=== PATIENT | male | born 1975 | race African-American/Black ===

== ENCOUNTER → 2017-07-15 | Outpatient (CLI) | payer BC ==
[~2017-07-15] MED LIST: AMLODIPINE BESY10 MG PO; ASPIRIN81 M1 PO; BENTYL20 MG PO; PRILOSEC40 MG PO; ULTRAM50 MG PO
== END | disposition home or self-care (01) ==
LOC: CDC 08:48
DX: Z01.810 Encounter for preprocedural cardiovascular examination (principal); M25.511 Pain in right shoulder; M75.41 Impingement syndrome of right shoulder; M75.21 Bicipital tendinitis, right shoulder
CPT/HCPCS: 93000

== ENCOUNTER 2017-08-04 13:28 | Observation (INO) | payer BC ==
[~2017-08-04] VITALS: Ht 167.6 cm; Wt 82.0 kg
[2017-08-04] MEDS ORDERED: LYRICA300 MG PO (16:55)
[2017-08-04] MEDS ORDERED: ADULT ASPIRIN R81 MG PO (16:55)
[2017-08-04 17:25] LABS: BASOPHIL (%) 0.2 % (0-1); EOSINOPHIL (%) 0.2 % (0-5); HEMATOCRIT 42.4 % (38.0-50.0); HEMOGLOBIN 14.4 G/DL (12.5-16.6); IMMATURE GRANULOCYTE (%) 0.4 % (0.0-0.7); LYMPHOCYTE (%) 9.5 % (15-42); MCH 29.4 PG (29.0-34.0); MCV 86.7 FL (86-99); MONOCYTE (%) 4.4 % (3-12); MONOCYTE COUNT 0.5 K/uL (0-0.8); NEUTROPHIL (%) 85.3 % (45-76); NEUTROPHIL COUNT 8.7 K/uL (1.8-6.4); PLATELET COUNT 161 K/uL (156-360); RBC DIS.WIDTH-CV 12.8 % (11.8-14.6); RBC DIS.WIDTH-SD 40.2 % (39-53); RED BLOOD COUNT 4.89 M/uL (4.00-5.50); WHITE BLOOD COUNT 10.2 K/uL (4.1-10.2)
[2017-08-04 17:58] VITALS: BP 149/97
[2017-08-04 19:34] VITALS: BP 138/76
[2017-08-04 23:33] VITALS: BP 144/85
[2017-08-05 08:45] VITALS: BP 145/90
[2017-08-05 09:35] VITALS: BP 140/88
[2017-08-05] MEDS ORDERED: HYDROXYZINE PAM25 MG PO (10:06)
[2017-08-05] MEDS ORDERED: PREDNISONE10 MG PO (10:10)
[2017-08-05] MEDS ORDERED: EPIPEN ADU0.3 MG/0.3 IM (10:11)
[2017-08-05] MEDS ORDERED: TRAMADOL HCL50 MG PO (10:11)
== END 2017-08-05 12:49 | disposition home or self-care (01) ==
LOC: EME 13:28 → EDOF 16:24 → 4SOUTH 16:24 → ENRESERV 16:26 → 4SOUTH 17:45 → ENPENDDIS 08-05 → 4SOUTH 08-05 12:49
PROVIDERS: Family Medicine
DX: T78.40XA Allergy, unspecified, initial encounter (principal); R21 Rash and other nonspecific skin eruption; R22.0 Localized swelling, mass and lump, head; I10 Essential (primary) hypertension; G89.29 Other chronic pain; M54.9 Dorsalgia, unspecified; Z79.899 Other long term (current) drug therapy; Z79.82 Long term (current) use of aspirin
CPT/HCPCS: 85025; 99281; 99284; G0378; J1200; J1885; J2405; J2930; J7030; Q0177; S0028